=== PATIENT | male | born 1965 | race Caucasian/White ===

== ENCOUNTER 2019-02-21 13:43 | Inpatient (IN) | payer OTHER ==
[~2019-02-21] VITALS: Ht 188 cm; Wt 91.2 kg
[~2019-02-21 13:43] MED LIST: CITA-145 PO; FOLI-68 PO; MULT-1379 PO; NICO-219 BC; THIA100T20 PO; TRAZ150T8 PO
[2019-02-21] MEDS ORDERED: LISI-374 PO (13:57)
--- NOTE | 2019-02-21 14:09 | ER Report ---
History and Physical Time Seen By MD: 13:55 Hx. of Stated Complaint: PATIENT REPORTS CYST IN THE ANUS. ALSO REPORTS FEELING BAD FOR THE LAST 12 HOURS. PATIEN WAS AT URGENT CARE AND TOLD HE NEEDED TO COME TO THE ER HPI/ROS CHIEF COMPLAINT: Swelling and pain around posterior scrotum HISTORY OF PRESENT ILLNESS: 53-year-old male patient presents to emergency room with complaint of swelling pain around the posterior scrotum. Patient states that he's been having problems with this for the past several years. He states that he has been on multiple antibiotics. He states that he is on erythromycin for an extended period time. He states that seemed to help, however he has since developed abscesses in the same area and has taken erythromycin with no improvement. Patient states he is not had any fevers, chills, nausea, vomiting or diarrhea. He states that he has is not taking anything for pain. He states his pain is fairly significant. He denies any nausea, vomiting or diarrhea. He states he is not really lightheaded, and does not like himself. He states that he did go to urgent care and was evaluated there and referred to the emergency room. REVIEW OF SYSTEMS: Respiratory: No cough, no dyspnea. Cardiovascular: No chest pain, no palpitations. Gastrointestinal: No vomiting, no abdominal pain. Musculoskeletal: No back pain. Allergies: Coded Allergies: NSAIDS (Non-Steroidal Anti-Inflamma (Verified Adverse Reaction, Unknown, "DUE TO CHRONS DISEASE", 07/14/18) Home Meds Reported Medications Lisinopril (LISINOPRIL) 40 Mg Tablet, 40 MG PO QDAY, TAB 02/21/19 Discontinued Reported Medications Trazodone Hcl (TRAZODONE HCL) 150 Mg Tablet, 50-150 MG PO QHS 07/16/18 Nicotine Polacrilex (NICORETTE) 2 Mg Gum, 2 MG BC, GUM 07/16/18 Thiamine Hcl (VITAMIN B-1) 100 Mg Tablet, 100 MG PO 07/16/18 Multivits,-,Other Min (THERA-M) 1 Each Tablet, 1 EACH PO 07/16/18 Folic Acid (FOLIC ACID) 1 Mg Tablet, 1 MG PO QDAY, TAB 07/16/18 Citalopram Hydrobromide (CITALOPRAM HBR) 20 Mg Tablet, 20 MG PO QDAY, #5 TAB 07/14/18 Past Medical/Surgical History Patient has a past medical history of Crohn's disease, arthritis, back pain, depression. Patient denies any surgical history. Reviewed Nurses Notes: Yes Hx Smoking: Yes Smoking Status: Current: Every Day Smoker Exposure to Second Hand Smoke?: Yes Constitutional Vital Sign - Last 24 Hours 02/21/19 02/21/19 02/21/19 02/21/19 13:43 13:48 13:52 14:03 Temp 99.0 Pulse 93 101 92 Resp 18 B/P (MAP) 136/81 (99) 136/81 Pulse Ox 96 O2 Delivery Room Air 02/21/19 02/21/19 02/21/19 02/21/19 14:23 14:43 15:03 15:23 Pulse 95 99 85 100 Pulse Ox 90 02/21/19 02/21/19 02/21/19 02/21/19 15:25 15:45 16:05 16:25 Pulse 101 97 95 97 Pulse Ox 90 90 92 02/21/19 02/21/19 02/21/19 02/21/19 16:45 17:05 17:06 17:26 Pulse 100 94 96 94 Pulse Ox 90 92 93 91 Physical Exam General Appearance: The patient is alert, has no immediate need for airway protection and no current signs of toxicity. Respiratory: Chest is non tender, lungs are clear to auscultation. Cardiac: regular rate and rhythm Gastrointestinal: Abdomen is soft and non tender, no masses, bowel sounds normal. : Patient does have significant swelling, tenderness to the posterior scrotum. Is erythematous, warm to the touch. Musculoskeletal: Neck: Neck is supple and non tender. Extremities have full range of motion and are non tender. Skin: No rashes or lesions. DIFFERENTIAL DIAGNOSIS: After history and physical exam differential diagnosis was considered for abscess, phlegmon, cellulitis, fistula from colon to scrotum. Medical Decision Making Data Points Result Diagram: 02/21/19 1404 02/21/19 1404 Laboratory Hematology Test 02/21/19 14:04 White Blood Count 16.0 k/uL (4.5-11.0) H Red Blood Count 4.07 M/uL (4.00-5.60) Hemoglobin 14.0 g/dL (14.0-18.0) Hematocrit 40.4 % (42.0-52.0) L Mean Corpuscular Volume 99.3 fL (80.0-96.0) H Mean Corpuscular Hemoglobin 34.3 pg (26.0-33.0) H Mean Corpuscular Hemoglobin Concent 34.6 g/dL (32.0-36.0) Red Cell Distribution Width 13.1 % (11.5-14.5) Platelet Count 274 K/uL (150-450) Mean Platelet Volume 7.2 fL (7.2-11.1) Neutrophils (%) (Auto) 85.8 % (39.4-72.5) H Lymphocytes (%) (Auto) 6.9 % (17.6-49.6) L Monocytes (%) (Auto) 6.4 % (4.1-12.4) Eosinophils (%) (Auto) 0.4 % (0.4-6.7) Basophils (%) (Auto) 0.5 % (0.3-1.4) Nucleated RBC Relative Count (auto) 0.0 /100WBC Neutrophils # (Auto) 13.8 K/uL (2.0-7.4) H Lymphocytes # (Auto) 1.1 K/uL (1.3-3.6) L Monocytes # (Auto) 1.0 K/uL (0.3-1.0) Eosinophils # (Auto) 0.1 K/uL (0.0-0.5) Basophils # (Auto) 0.1 K/uL (0.0-0.1) Nucleated RBC Absolute Count (auto) 0.00 K/uL Peripheral Blood Smear No Y/N Chemistry Test 02/21/19 14:04 Sodium Level 131 mmol/L (137-145) Potassium Level 3.9 mmol/L (3.5-5.0) Chloride Level 97 mmol/L (98-107) Carbon Dioxide Level 24 mmol/L (22-30) Blood Urea Nitrogen 8 mg/dl (9-21) Creatinine 1.00 mg/dl (0.66-1.25) Glomerular Filtration Rate Calc > 60.0 Random Glucose 114 mg/dl (75-110) Lactate 1.2 mmol/L (0.7-2.1) Calcium Level 9.0 mg/dl (8.4-10.2) Total Bilirubin 0.9 mg/dl (0.2-1.3) Aspartate Amino Transf (AST/SGOT) 18 U/L (0-35) Alanine Aminotransferase (ALT/SGPT) 32 U/L (0-56) Alkaline Phosphatase 71 U/L (0-126) Total Protein 7.2 g/dl (6.3-8.2) Albumin 3.8 g/dl (3.5-5.0) Urinalysis Test 02/21/19 14:27 Urine Color Yellow Urine Clarity Clear Urine pH 5.0 pH (4.8-9.5) Urine Specific Critz 1.011 Urine Protein Negative mg/dL (NEGATIVE) Urine Glucose (UA) Negative mg/dL (NEGATIVE) Urine Ketones Negative mg/dL (NEGATIVE) Urine Blood Negative (NEGATIVE) Urine Nitrite Negative (NEGATIVE) Urine Bilirubin Negative (NEGATIVE) Urine Urobilinogen Negative mg/dL (0.2-1.9) Urine Leukocyte Esterase Negative (NEGATIVE) Urine RBC <1 /HPF (0-2/HPF) Urine WBC <1 /HPF (0-5/HPF) Urine Squamous Epithelial Cells Few /LPF (</=FEW) Urine Bacteria Negative /HPF (NONE-FEW) Urine Mucus None /HPF (NONE-FEW) EKG/Imaging Imaging EXAMINATION: CT pelvis with IV contrast HISTORY: Abscess at base of scrotum. COMPARISON: None. TECHNIQUE: Spiral scan was obtained through the pelvis during injection of nonionic iodinated intravenous contrast. Sagittal and coronal reformatted images are also submitted. CONTRAST: 75 mL of IV Isovue-370 One of the following dose optimization techniques was utilized in the performance of this exam: Automated exposure control; adjustment of the mA and/or kV according to the patient's size; or use of an iterative reconstruction technique. Specific details can be referenced in the facility's radiology CT exam operational policy. FINDINGS: Pelvic structures: Fluid collection with peripheral enhancement in the posterior scrotum measuring 5 x 3.7 x 2.1 cm. There is swelling of the wall of the scrotum and fat stranding in the soft tissues immediately above the scrotum. No pockets of gas within the soft tissues. Bowel: Negative. Peritoneum / retroperitoneum / mesenteries: No intraperitoneal free air or free fluid. Vessels: Mild calcified plaque of the iliac arteries. Musculoskeletal / Body wall: Small fat-containing right inguinal hernia. Sclerosis along the sacroiliac joints. Disc and facet degenerative changes in the visible lower lumbar spine. Lymph node assessment: Mildly enlarged bilateral inguinal and external iliac chain lymph nodes. IMPRESSION: Abscess in the posterior scrotum measuring 5 x 3.7 x 2.1 cm with swelling of the scrotal wall and bilateral inguinal lymphadenopathy. There are no pockets of gas within the soft tissues. Report Dictated By: Nick Miller MD at 02/21/2019 3:17 PM Report E-Signed By: Nick Miller MD at 02/21/2019 3:26 PM ED Course/Re-evaluation ED Course Patient is admitted and examined, history and physical were obtained. Differen tial diagnoses were considered. On examination lungs are clear, heart is regular, abdomen is soft and nontender. Patient does have significant swelling and tenderness to the posterior aspect of the scrotum. An IV was started, CBC, CMP, urinalysis, lactate, blood cultures were obtained. Patient had an elevated white count 16,[address] scan of the pelvis was done which showed a large 5 x 3 cm abscess in the scrotum. I discussed the case with Dr. Charles, urologist, who came and evaluated the patient. He stated that the patient to the hospital and will take him to surgery this evening. I discussed this with the patient who verbalized understanding and agreement. Patient did receive a dose of ertapenem here in the emergency room. He also received 4 mg of morphine 2 which seemed to help with his pain. Patient was febrile and was given 1 g of Tylenol IV. Decision to Disposition Date: Feb 21, 2019 Decision to Disposition Time: 17:09 Depart Departure Latest Vital Signs Vital Signs Date Time Temp Pulse Resp B/P (MAP) Pulse Ox O2 Delivery O2 Flow Rate FiO2 02/21/19 17:26 94 91 02/21/19 13:52 99.0 18 136/81 Room Air Impression: Primary Impression: Scrotal abscess Condition: Improved Disposition: Admitted from ER EJ FARLEY Feb 21, 2019 14:09
[2019-02-21] MEDS ORDERED: NS(*) 0.9% 1000 ML BAG 1,000 ML IV ONE (14:20)
[2019-02-21] MEDS ORDERED: MORPHINE 4 MG/ML SDV IVP ONE ×2 (14:20→17:45)
[2019-02-21 14:28] LABS: PLATELET COUNT, AUTOMATED 274 K/uL (150-450)
[2019-02-21] MEDS ORDERED: IOPAMIDOL 76% 100 ML INFUS BTL 100 ML ONE (14:42)
[2019-02-21] MEDS ORDERED: ERTAPENEM(*) 1 GM VIAL 1 GM in NS(*) 0.9% 100 ML MINI-BAG 100 ML IVPB ONE (14:50)
--- NOTE | 2019-02-21 15:34 | RADIOLOGY IMAGING REPORT ---
FACILITY: [facility] PATIENT NAME: Chun Riley : 1965 MR: [id number] V: [id number] EXAM DATE: ORDERING PHYSICIAN: EJ FARLEY TECHNOLOGIST: [place] [facility] [place]: Chun Riley : 1965 Visit/Account:[id number] Date of Sevice: 02/21/2019 EXAMINATION: CT pelvis with IV contrast HISTORY: Abscess at base of scrotum. COMPARISON: None. TECHNIQUE: Spiral scan was obtained through the pelvis during injection of nonionic iodinated intra venous contrast. Sagittal and coronal reformatted images are also submitted. CONTRAST: 75 mL of IV Isovue-370 One of the following dose optimization techniques was utilized in the performance of this exam: Autom ated exposure control; adjustment of the mA and/or kV according to the patient's size; or use of an i terative reconstruction technique. Specific details can be referenced in the facility's radiology C T exam operational policy. FINDINGS: Pelvic structures: Fluid collection with peripheral enhancement in the posterior scrotum measuring 5 x 3.7 x 2.1 cm. There is swelling of the wall of the scrotum and fat stranding in the soft tissue s immediately above the scrotum. No pockets of gas within the soft tissues. Bowel: Negative. Peritoneum / retroperitoneum / mesenteries: No intraperitoneal free air or free fluid. Vessels: Mild calcified plaque of the iliac arteries. Musculoskeletal / Body wall: Small fat-containing right inguinal hernia. Sclerosis along the sacroil iac joints. Disc and facet degenerative changes in the visible lower lumbar spine. Lymph node assessment: Mildly enlarged bilateral inguinal and external iliac chain lymph nodes. IMPRESSION: Abscess in the posterior scrotum measuring 5 x 3.7 x 2.1 cm with swelling of the scrotal wall and aydin ateral inguinal lymphadenopathy. There are no pockets of gas within the soft tissues. Report Dictated By: Nick Miller MD at 02/21/2019 3:17 PM Report E-Signed By: Nick Miller MD at 02/21/2019 3:26 PM WSN:[facility]
[2019-02-21] MEDS ORDERED: ACETAMINOPHEN(*)1000 MG/100 ML 100 ML IVPB ONE (16:25)
[2019-02-21 18:07] VITALS: BP 99/62
[2019-02-21] MEDS ORDERED: LR(*) 1000 ML BAG 1,000 ML IV PRN (18:15)
[2019-02-21] MEDS ORDERED: ONDANSETRON 4 MG/2 ML VIAL IVP PRN (18:15)
[2019-02-21] MEDS ORDERED: ACETAMINOPHEN(*)1000 MG/100 ML 100 ML IVPB PRN (18:20)
[2019-02-21] MEDS ORDERED: NORMOSOL R SOLN(*) 1000 ML BAG 1,000 ML IV ONE (18:20)
[2019-02-21] MEDS ORDERED: MORPHINE 50 MG/50 ML PCA BAG IV PRN (18:20)
[2019-02-21] MEDS ORDERED: FAMOTIDINE 20 MG TAB PO ONE (18:20)
[2019-02-21] MEDS ORDERED: NALOXONE HCL 0.4 MG/ML VIAL IVP PRN (18:20)
[2019-02-21 18:47] VITALS: BP 103/60
[2019-02-21] MEDS ORDERED: fentaNYL CITR 250 MCG/5 ML AMP ONE (19:54)
[2019-02-21] MEDS ORDERED: LIDOCAINE 2% IV 100 MG/5ML SYR ONE (19:55)
[2019-02-21] MEDS ORDERED: PROPOFOL EMUL(*) 10MG/ML 20 ML 20 ML ONE (19:56)
[2019-02-21] MEDS ORDERED: ROPIVACAINE 0.2% 20 ML VIAL ONE (20:37)
[2019-02-21] MEDS ORDERED: DEXAMETHASONE SOD 4 MG/ML VIAL ONE (20:51)
[2019-02-21] MEDS ORDERED: ONDANSETRON 4 MG/2 ML VIAL ONE (20:52)
[2019-02-21] MEDS ORDERED: KETAMINE HCL 200 MG/20 ML MDV ONE (20:57)
[2019-02-21] MEDS ORDERED: fentaNYL CITR 100 MCG/2 ML AMP ONE ×3 (21:07→22:27)
--- NOTE | 2019-02-21 22:33 | HISTORY AND PHYSICAL ---
DATE OF ADMISSION: February 21, 2019 CHIEF COMPLAINT Scrotal swelling. HISTORY OF PRESENT ILLNESS Patient is a 53-year-old white male who was referred to the emergency room by Urgent Care for scrotal swelling. The patient states that he has had this on and off for the past several years and has been treated with multiple antibiotics and was on erythromycin for an extended period of time. More recently, his swelling has increased with associated pain. The patient has not had any fever, chills, nausea, vomiting, or change in urination or bowel movements. He was evaluated in the emergency room, where a CT scan was obtained, which revealed a 5 x 3.7 x 2.1 abscess in the posterior scrotal with associated bilateral inguinal adenopathy. It did not appear the testes, urethra, or rectum were involved. Patient now admitted for scrotal exploration, incision and drainage of abscess, possible debridement as indicated. PAST MEDICAL HISTORY 1. Depression and anxiety. 2. Chronic back pain. 3. History of Crohn disease. 4. Hypertension. CURRENT MEDICATIONS Lisinopril. ALLERGIES NONSTEROIDAL ANTI-INFLAMMATORIES. FAMILY HISTORY Noncontributory. SOCIAL HISTORY Patient is single, lives in [place], [place]. He has a positive smoking and tobacco use history. REVIEW OF SYSTEMS Patient denies history of diabetes, urinary tract infections, kidney stones, gross hematuria, decreased force of stream, chest pain, productive cough, or bleeding disorder. PHYSICAL EXAMINATION GENERAL: Patient is a well-developed, well-nourished white male in no acute distress. HEENT: Normocephalic, atraumatic. CHEST: Clear to auscultation bilaterally. CARDIOVASCULAR: Regular rate and rhythm. ABDOMEN: Soft, nontender. No masses are palpated. GENITOURINARY: Exam reveals a normal penis. His posterior scrotum is significantly erythematous and tender to touch with some swelling and mild tightness of skin, consistent with underlying abscess. His testes palpate normally; however, exam is somewhat limited due to discomfort. RECTAL: Digital rectal exam is deferred to the OR. EXTREMITIES: Without clubbing, cyanosis, or edema. NEUROLOGIC: Exam is nonfocal. LABORATORY DATA He has a white count of 16.0 with a left shift and hematocrit of 40%. His hematocrit is at 40.4%. Glucose 114, creatinine 1.0, CO2 of 24. His urinalysis is completely normal. IMPRESSION A 53-year-old white male with a posterior scrotal abscess. At this point, the source is unclear but does not appear to be emanating from the urethral rectum by imaging modality. He has no known history of diabetes; however, his sugar is only mildly elevated today. PLAN We will perform scrotal exploration, incision and drainage of abscess, possible debridement as indicated, also possible cystoscopic exam if there is any question of a urethral involvement, and possible suprapubic tube placement. MARIA A
[2019-02-21 23:16] VITALS: BP 107/68
[2019-02-21] MEDS ORDERED: ACETAMINOPHEN 325 MG TAB PO PRN (23:40)
[2019-02-21] MEDS ORDERED: MAG HYD/AL HYD/SIMETH 30ML UDC PO PRN (23:40)
[2019-02-22] VITALS (7 sets, daily range): BP systolic 83–141; BP diastolic 45–79; Ht 188 cm; Wt 91.2 kg
[2019-02-22 06:19] LABS: PLATELET COUNT, AUTOMATED 283 K/uL (150-450)
[2019-02-22] MEDS: LR(*) 1000 ML BAG 1,000 ML IV PRN ×2 (06:37→18:07)
--- NOTE | 2019-02-22 07:54 | Antimicrobial Stewardship ---
Antimicrobial Time Out Antimicrobial Stewardship MD Service: Other (Urologist, Dr. Charles) Indications: Other (Post-op I and D for scrotal abscess) Antimicrobial Used Invanz Culture Results: N/A Eligible for PO Conversion Eligable for PO Conversion: RODRIGO Reina Feb 22, 2019 07:54
--- NOTE | 2019-02-22 08:28 | OPERATIVE REPORT 1 ---
EVENT DATE: February 21, 2019 SURGEON: Carrington Charles MD ANESTHESIOLOGIST: Elias Powers MD ANESTHESIA: General. PREOPERATIVE DIAGNOSIS Inferior scrotal abscess. POSTOPERATIVE DIAGNOSIS Inferior scrotal abscess. PROCEDURES PERFORMED * Anesthetic cystoscopy. * Scrotal incision and drainage of abscess and debridement. ESTIMATED BLOOD LOSS 50 cc. IV FLUIDS Crystalloids. DRAINS 16-Scottish Dumont catheter. PATHOLOGY Wound culture for aerobic and anaerobic organisms sent. COMPLICATIONS None. CONDITION Patient to the recovery room awake and in stable condition. STATEMENT OF MEDICAL NECESSITY Patient is a 53-year old white male who presented to the emergency room with several day history of increasing scrotal pain. CT scan revealed a 5 x 3.5 cm inferior scrotal abscess. It did not appear to involve the urethra, testes or rectum on the ultrasound. Physical exam revealed induration with swelling and erythema in the inferior scrotum above the perineum. The patient was noted to have an elevated white count of 16. His urinalysis was normal as well as his lactate. He has no history of diabetes. Patient states he has had prior swellings in the past which have been treated with prolonged antibiotic treatment but they seem to recur. He denies change in urinary symptoms or bowel habits. He is now being brought to the operating room for scrotal exploration, possible I and D debridement and any other indicated procedure. DESCRIPTION OF PROCEDURE Patient was brought to the operating room. After general anesthetic was obtained, he was placed in the extended dorsal lithotomy position and prepped and draped in the usual sterile manner. Before he was prepped, a digital rectal exam was performed, which revealed a normal revealing 20 gram cc volume prostate which was nonfluctuant and nonindurated. The rectal vault was normal without masses or other anomalies. Following prep and drape, the patient was scoped with the 21-Scottish rigid Gilliam scope and 30-degree lens. He had a normal appearing pendulous bulbar membranous and prostatic urethra. There was no evidence of stricture, polyp, diverticular or other lesions. His bladder appeared normal. He had slit-like ureteral orifices both effluxing clear urine and 1+ trabeculated with no lesions. At this point, the scope was removed and a 16-Scottish Dumont catheter placed. This was placed to gravity drainage. A midline incision was made over the inferior scrotal swelling and immediately had release of approximately 100 cc of yellowish-brown pus. A wound culture was obtained x2 inside the wound. The wound was digitally explored and appeared to be superficial in the skin structures and did not penetrate deep to the urethra, to the anterior scrotum or down into the perineum. An elliptical excision of skin was performed in the midline. A small amount of debridement along the skin edges was also performed. The wound was then copiously irrigated with antibiotic double solution and thoroughly inspected. There appeared to be no necrotic or nonviable tissue. Small bleeding vessels along the skin edge and wound base were controlled with electrocautery. The wound was then packed with moist Kerlix gauze. A fluff dressing was placed on top of this and then mesh underwear placed to provide support for the dressing. The patient was taken down from dorsal lithotomy position, awakened in the operating room and taken to the recovery area in stable condition. The plan will be to admit the patient, continue him on IV antibiotics. We will perform a dressing change at bedside tomorrow to evaluate the wound and perform a second look in the operating room if deemed necessary. MARIA A
[2019-02-22] MEDS: DOCUSATE SODIUM 100 MG CAP PO SCH ×2 (09:26→20:55)
[2019-02-22] MEDS ORDERED: ERTAPENEM(*) 1 GM VIAL 1 GM in NS(*) 0.9% 100 ML MINI-BAG 100 ML IVPB SCH (15:00)
[2019-02-22] MEDS ORDERED: NS 0.9% IRRIGATION 500 ML PLCT 500 ML IR ONE (15:02)
[2019-02-23 06:53] VITALS: BP 117/75
[2019-02-23] MEDS: DOCUSATE SODIUM 100 MG CAP PO SCH (09:00)
--- NOTE | 2019-02-23 13:56 | DISCHARGE SUMMARY ---
DATE OF ADMISSION: February 21, 2019 DATE OF DISCHARGE: February 23, 2019 CHIEF COMPLAINT Lower scrotal abscess. HISTORY OF PRESENT ILLNESS Patient is a 53-year old white male with several year history of on and off swelling in the lower scrotum who recently presented to the emergency room with increasing swelling and pain. CT revealed a 5 x 3 cm abscess. HOSPITAL COURSE Patient was admitted the hospital on February 21 and taken to the operating room and underwent scrotal I and D and debridement. Cultures were obtained and the wound was packed with wet-to-dry dressings. On the first postop day, he remained afebrile. His white count decreased from 16 down to 12 and he was feeling much improved. The dressing was changed at the bedside in the evening of February 22. There was no evidence of nonviable tissue. The wound base was clean without discharge. On the following morning, the patient took a shower and was able to change his dressing by himself. He was given both supplies and instructions by the nurses to perform this twice a day and he was deemed ready for discharge. His cultures were still pending. CONDITION AT DISCHARGE Stable. ACTIVITY Ad alondra. DIET Regular. MEDICATIONS Bactrim DS one p.o. b.i.d. for two weeks, Ralston #10 p.r.n., Colace twice a day. FOLLOWUP We will plan to see him in the Urology Clinic on February 25 for dressing change and wound check. MARIA A
== END 2019-02-23 10:38 | disposition home or self-care (01) | DRG 728 ==
LOC: ER 13:51 → MED 17:41
PROVIDERS: ADMIT Urology; ATTEND Urology
PROC: 0V95XZX Drainage of Scrotum, External Approach, Diagnostic (ICD-10-PCS; 2019-02-21)
PROC: 0VB5XZZ Excision of Scrotum, External Approach (ICD-10-PCS; 2019-02-21)
PROC: 0TJB8ZZ Inspection of Bladder, Via Natural or Artificial Opening Endoscopic (ICD-10-PCS; principal; 2019-02-21 20:58)
DX: N49.2 Inflammatory disorders of scrotum (principal); K50.90 Crohn's disease, unspecified, without complications; F17.210 Nicotine dependence, cigarettes, uncomplicated; I10 Essential (primary) hypertension; G89.29 Other chronic pain; F32.9 Major depressive disorder, single episode, unspecified
CPT/HCPCS: 36415; 72193; 81001; 82040; 82247; 82310; 82374; 82435; 82565; 82947; 83605; 84075; 84132; 84155; 84295; 84450; 84460; 84520; 85025; 87040; 87071; 87073; 87077; 87186; 96361; 96365; 96367; 96375; 96376; 99284; J0131; J1100; J1335; J2001; J2270; J2405; J2704; J2795; J3010; J3490; J7030; J7120; Q9967

== ENCOUNTER 2019-03-03 00:35 | Day surgery (SDC) | payer OTHER ==
[2019-02-22 15:15] VITALS: Ht 186.7 cm; Wt 88.9 kg
--- NOTE | 2019-03-02 19:18 | HISTORY AND PHYSICAL ---
DATE OF ADMISSION: March 03, 2019 CHIEF COMPLAINT Open scrotal wound status post I and D of abscess. HISTORY OF PRESENT ILLNESS Patient is a 53-year-old white male who was found to have an approximately 5 x 4 cm inferior scrotal abscess on the 21 of February. At that time, he was taken to the operating room and underwent I and D. He has been on Bactrim p.o. since that time and has been doing well. When seen in the Urology Clinic, he had the beginnings of granulation tissue at the wound base and was continuing to do b.i.d. dressing changes. Options of continued dressing changes with a delayed intention closure versus a delayed secondary closure in the operating room were discussed, and the patient desired the latter. Therefore, he is now being brought to the operating room for planned wound debridement, irrigation, and delayed closure with drain placement. PAST MEDICAL HISTORY 1. Depression and anxiety. 2. Chronic low back pain. 3. History of Crohn disease. 4. Hypertension. CURRENT MEDICATIONS Lisinopril. ALLERGIES NONSTEROIDAL ANTI-INFLAMMATORIES. FAMILY HISTORY Noncontributory. SOCIAL HISTORY Patient is single, lives in [place], [place]. He has a positive smoking and ethanol use history. REVIEW OF SYSTEMS Patient denies chest pain, shortness of breath, nausea, vomiting, fever, chills, abdominal pain, change in bowel habits, or bleeding disorder. PHYSICAL EXAMINATION GENERAL: Patient is a well-developed, well-nourished white male in no acute distress. HEENT: Normocephalic, atraumatic. CHEST: Clear to auscultation bilaterally. CARDIOVASCULAR: Regular rate and rhythm. ABDOMEN: Soft, nontender. No masses are palpated. GENITOURINARY: Deferred to the OR. EXTREMITIES: Without clubbing, cyanosis, or edema. NEUROLOGIC: Nonfocal. IMPRESSION A 53-year-old white male with an inferior scrotal wall abscess. He is now 10 days status post incision and drainage. He has been doing wet-to-dry dressing changes and has good granulation tissue without evidence of ongoing infection. PLAN Will performed delayed closure after irrigation and debridement as necessary. Will also place a Bob White drain, which we will remove over the course of the next several days. Specific risks were explained including primary wound breakdown with need to reopen and drain and continue to pack for healing. [facility]
[~2019-03-03] VITALS: Ht 186.7 cm; Wt 88.9 kg
[~2019-03-03 00:35] MED LIST changes: +LISI-374 PO
[2019-03-03] MEDS ORDERED: fentaNYL CITR 250 MCG/5 ML AMP ONE (07:53)
[2019-03-03] MEDS ORDERED: PROPOFOL EMUL(*) 10MG/ML 20 ML 20 ML ONE (07:55)
[2019-03-03] MEDS ORDERED: ONDANSETRON 4 MG/2 ML VIAL ONE (07:55)
[2019-03-03] MEDS ORDERED: LIDOCAINE MPF 1% 5 ML VIAL ONE (07:55)
[2019-03-03] MEDS ORDERED: KETAMINE HCL-NS 50 MG/5 ML SYR ONE (07:55)
[2019-03-03] MEDS ORDERED: DEXAMETHASONE SOD PHOS 10MG/ML ONE (07:55)
[2019-03-03] MEDS ORDERED: NORMOSOL R SOLN(*) 1000 ML BAG 1,000 ML IV PRN (08:00)
[2019-03-03] MEDS ORDERED: MIDAZOLAM 2 MG/2 ML VIAL IVP PRN (08:00)
[2019-03-03] MEDS ORDERED: ceFAZolin(*) 2GM/D5W 50ML 50 ML IVPB ONE (08:00)
[2019-03-03] MEDS ORDERED: FAMOTIDINE 20 MG TAB PO ONE (08:00)
[2019-03-03] MEDS ORDERED: LIDOCAINE/SOD BICARB 8.4% SYR ID ONE (08:00)
[2019-03-03 08:12] VITALS: BP 116/61
[2019-03-03] MEDS ORDERED: ROPIVACAINE 0.2% 20 ML VIAL ONE (09:05)
--- NOTE | 2019-03-03 09:07 | EKG ---
FACILITY: [facility] PATIENT NAME: ROSEANNA RIOS : [id number] MR: [id number] V: [id number] EXAM DATE: ORDERING PHYSICIAN: DAVE DEGROOT TECHNOLOGIST: BJ Test Reason : PRE OP Blood Pressure : / mmHG Vent. Rate : 074 BPM Atrial Rate : 074 BPM P-R Int : 148 ms QRS Dur : 086 ms QT Int : 376 ms P-R-T Axes : 031 036 022 degrees QTc Int : 417 ms Normal sinus rhythm Normal ECG When compared with ECG of 14-JUL-2018 16:58, No significant change was found Confirmed by CARLITOS REEDER ([id number]) on 03/03/2019 7:08:26 PM Referred By: Confirmed By:CARLITOS REEDER
[2019-03-03] MEDS ORDERED: ePHEDrine 25 MG/5 ML DISP.SYR IVP ONE (09:49)
[2019-03-03] MEDS ORDERED: BACITRACIN OINT 15 GM TUBE TP ONE (10:13)
[2019-03-03] MEDS ORDERED: fentaNYL CITR 100 MCG/2 ML AMP ONE ×2 (10:31→10:38)
[2019-03-03] MEDS ORDERED: DOCU-416 PO (10:56)
[2019-03-03] MEDS ORDERED: CEPH500T7 PO (10:56)
[2019-03-03] MEDS ORDERED: HYDR-653 PO (10:58)
[2019-03-03] MEDS ORDERED: APAP/HYDROCODONE 325/5 TAB ONE (11:36)
[2019-03-03 11:44] VITALS: BP 109/62
[2019-03-03 11:53] VITALS: BP 115/68
[2019-03-03 12:02] VITALS: BP 114/65
--- NOTE | 2019-03-03 13:37 | NUR ---
Pt discharged at 1220. Called Pt at 1227 and left a message that we had a scrotal support for him. 1238 Pt returned call. 1248 Met pt in parking lot and gave pt scrotal support.
--- NOTE | 2019-03-03 16:53 | OPERATIVE REPORT 1 ---
EVENT DATE: March 03, 2019 SURGEON: Carrington Charles MD ANESTHESIOLOGIST: Wilman Jones MD ANESTHESIA: General anesthetic. PREOPERATIVE DIAGNOSIS Open scrotal wound status post incision and drainage of scrotal abscess. POSTOPERATIVE DIAGNOSIS Open scrotal wound status post incision and drainage of scrotal abscess. PROCEDURE PERFORMED Scrotal wound debridement with irrigation and delayed primary closure. ESTIMATED BLOOD LOSS 5 mL. INTRAVENOUS FLUIDS Crystalloids. DRAINS A 1/4-inch Graham drain extending superior and inferior to incision. COMPLICATIONS None. CONDITION Patient taken to the recovery room awake, in stable condition. STATEMENT OF MEDICAL NECESSITY Patient is a 53-year-old white male who was taken to the operating room 10 days ago for a 5 x 4 cm midline inferior scrotal abscess. He underwent I and D and debridement at this point in time and has been doing wet-to-dry dressing changes. He now has good granulation tissue at the base with no signs of erythema or infection. He is now being brought to the operating room for planned irrigation, debridement, and delayed closure. DESCRIPTION OF OPERATION PERFORMED Patient was brought to the operating room after general anesthetic was attained. He was placed in the dorsal lithotomy position and prepped and draped in the usual sterile manner. The wound was inspected. There were two to three small areas of eschar-type tissue at the base and lateral aspects of the wound. These were sharply debrided. The wound was then copiously irrigated with Betadine solution and the base of the wound scrubbed with 4 x 4's. Following this, the wound was irrigated with double antibiotic solution. At this point, the patient appeared to have an excellent clean wound and steps made to attempt delayed closure. A 1/4-inch Graham drain was placed in the wound base in the midline through a separate stab wound incision superior and lateral to the wound on the patient's left side. This 1/4-inch Graham drain was laid in place. It was secured to the skin edge with a 2-0 nylon stitch, which was used to secure a safety pin. At this point, a deep layer closure with interrupted 2-0 Monocryl was then used over the Graham drain, and then a layer at the skin edge with horizontal mattresses was performed with 2-0 Monocryl as well, leaving a small gap just at the skin edge of approximately 2 mm. The Graham drain was exiting out the inferior portion of the wound and out the separate stab wound incision superiorly. When done, the Kimberly drain was removed with the scissors, and a was applied along the wound edge with a fluff dressing and a scrotal support. The patient was awakened in the operating room and taken to the recovery area in stable condition. PLAN The plan will be to have the patient discharge home today on Keflex, Kennard, and Colace. He is to do b.i.d. fluff dressing changes. Will plan to see him in the [facility] tomorrow to advance his Kimberly drain and perform a wound check. MARIA A
== END 2019-03-03 11:47 | disposition home or self-care (01) ==
LOC: OR 00:35
PROVIDERS: ATTEND Urology
DX: N49.2 Inflammatory disorders of scrotum (principal); I10 Essential (primary) hypertension
CPT/HCPCS: 11042; 93005; J1100; J2001; J2405; J2704; J2795; J3010; J3490; J0690